=== PATIENT | female | born 1955 | race Caucasian/White ===

== ENCOUNTER 2017-12-23 03:44 | Emergency (ER) | payer OTHER ==
[2017-12-23] MEDS ORDERED: HYDROcodone/APAP 5-325MG 1 EACH TAB PO STA ×2 (03:59→06:07)
[2017-12-23] MEDS ORDERED: DIAZEPAM 5 MG TAB PO STA (03:59)
--- NOTE | 2017-12-23 04:01 | ED ---
General Adult HPI - General Chief complaint: Fall Stated complaint: Foot injury Time Seen by Provider: 12/23/17 03:48 Source: patient, family, RN notes reviewed, old records reviewed Mode of arrival: wheelchair Limitations: no limitations - History of Present Illness Initial comments: This is a 8-year-old female the ER for evaluation of severe right ankle pain. Trip and fall over plan is at home. Patient complains of severe right ankle pain. No other injury no loss of consciousness. Patient denies drugs or alcohol - Related Data Previous Rx's Medication Instructions Recorded HYDROcodone/APAP 5-325MG [[place] 1 tab PO Q6HR PRN #10 tab 12/23/17 5-325] Allergies Allergy/AdvReac Type Severity Reaction Status Date / Time No Known Allergies Allergy Verified 12/23/17 03:53 Review of Systems ROS Statement: Those systems with pertinent positive or pertinent negative responses have been documented in the HPI. ROS Other: All systems not noted in ROS Statement are negative. Past Medical History Past Medical History: Hypertension Additional Past Medical History / Comment(s): Back pain. History of Any Multi-Drug Resistant Organisms: None Reported Past Surgical History: Joint Replacement, Orthopedic Surgery Past Psychological History: No Psychological Hx Reported Smoking Status: Current every day smoker Past Alcohol Use History: Occasional Past Drug Use History: Marijuana General Exam - General Exam Comments Initial Comments: significant deformity right ankle Limitations: no limitations General appearance: alert, in no apparent distress Head exam: Present: atraumatic, normocephalic, normal inspection Eye exam: Present: normal appearance, PERRL, EOMI. Absent: scleral icterus, conjunctival injection, periorbital swelling ENT exam: Present: normal exam, mucous membranes moist Neck exam: Present: normal inspection. Absent: tenderness, meningismus, lymphadenopathy Respiratory exam: Present: normal lung sounds bilaterally. Absent: respiratory distress, wheezes, rales, rhonchi, stridor Cardiovascular Exam: Present: regular rate, normal rhythm, normal heart sounds. Absent: systolic murmur, diastolic murmur, rubs, gallop, clicks GI/Abdominal exam: Present: soft, normal bowel sounds. Absent: distended, tenderness, guarding, rebound, rigid Extremities exam: Present: normal inspection, full ROM, normal capillary refill. Absent: tenderness, pedal edema, joint swelling, calf tenderness Back exam: Present: normal inspection Neurological exam: Present: alert, oriented X3, CN II-XII intact Psychiatric exam: Present: normal affect, normal mood Skin exam: Present: warm, dry, intact, normal color. Absent: rash Course Vital Signs 12/23/17 03:50 Temperature 98.7 F Pulse Rate 95 Respiratory 18 Rate Blood Pressure 139/79 O2 Sat by Pulse 97 Oximetry - Reevaluation(s) Reevaluation #1: 12/23/17 06:[address] Singletary for orthopedics, patient will follow-up at the end of the weekend Reevaluation #2: 12/23/17 06:25 Patient stressed nonweightbearing, agreeable Procedures - Orthopedic Fracture Reduction Fracture #1 Consent Obtained: verbal consent Time Out Performed: Yes Side: right Fracture Reduction Location: tibia, fibula Technique: direct manipulation, traction/counter-traction Post Reduction X-rays Demonstrate: anatomical reduction Post-Reduction Neuro Exam: intact Post-Reduction Vascular Exam: intact Splint Applied: Yes Patient Tolerated Procedure: well Medical Decision Making - Medical Decision Making 62 female the ER with fall resulting in right ankle trimalleolar fracture, ankle is splinted, patient will follow-up with orthopedics - Radiology Data Radiology results: report reviewed (X-ray right lower extremity show significant tremor now fracture right ankle,), image reviewed Disposition Clinical Impression: Closed right trimalleolar fracture, Fall Disposition: HOME SELF-CARE Condition: Good Instructions: Ankle Fracture (ED) Prescriptions: HYDROcodone/APAP 5-325MG [[place] 5-325] 1 tab PO Q6HR PRN #10 tab PRN Reason: Pain Is patient prescribed a controlled substance at d/c from ED?: No Referrals: Elieser Mari MD [Primary Care Provider] - 1-2 days
[2017-12-23 04:08] VITALS: TEMP 98.7
--- NOTE | 2017-12-23 04:35 | XR ---
EXAMINATION TYPE: XR ankle complete RT DATE OF EXAM: 12/23/2017 COMPARISON: NONE HISTORY: Ankle pain TECHNIQUE: 3 views FINDINGS: There is trimalleolar fracture of the right ankle. There is 1 cm lateral displacement of th e talus on frontal view. Distal fibula fracture is displaced 5 mm. There is 1 cm displacement of the medial malleolus fracture. There is a 3 x 1.5 cm large chip fracture of the posterior malleolus. Ther e is posterior dislocation of the talus on the lateral view. There is calcaneal spurring. IMPRESSION: Trimalleolar posterior fracture dislocation of the ankle joint.
[2017-12-23] MEDS ORDERED: ACET/COD 300 MG/30 MG STARTER PACK 6 TAB BTL PO STA (06:08)
[2017-12-23 06:31] VITALS: BP 122/73; PULSE 77; RESP 16
--- NOTE | 2017-12-23 06:42 | XR ---
EXAMINATION TYPE: XR ankle limited RT DATE OF EXAM: 12/23/2017 COMPARISON: Today HISTORY: Post reduction TECHNIQUE: 2 views FINDINGS: There is trimalleolar posterior fracture dislocation of the ankle. Talus is displaced poste riorly 1.5 cm. There is slightly improved position of the fragments compared to initial exam. IMPRESSION: Persistent posterior dislocation of the talus. Slight improved position.
== END 2017-12-23 07:09 | disposition home or self-care (01) ==
LOC: EC 03:44
DX: S82.851A Displaced trimalleolar fracture of right lower leg, initial encounter for closed fracture (principal); F17.200 Nicotine dependence, unspecified, uncomplicated; Z98.890 Other specified postprocedural states; W01.0XXA Fall on same level from slipping, tripping and stumbling without subsequent striking against object, initial encounter; Y92.009 Unspecified place in unspecified non-institutional (private) residence as the place of occurrence of the external cause
CPT/HCPCS: 27818; 99284

== ENCOUNTER 2021-01-21 14:25 | Emergency (ER) | payer MEDICARE, OTHER ==
[2021-01-21 14:30] VITALS: BP 146/80; PULSE 100; RESP 16; TEMP 97.5
[2021-01-21] MEDS ORDERED: IBUPROFEN 600 MG TAB PO STA (14:37)
--- NOTE | 2021-01-21 14:39 | ED ---
Upper Extremity HPI - General Chief Complaint: Extremity Injury, Upper Stated Complaint: L wrist injury Time Seen by Provider: 01/21/21 14:30 Source: patient Mode of arrival: ambulatory Limitations: no limitations - History of Present Illness Initial Comments: 65-year-old female presents to emergency department with a chief complaint of left wrist pain. States the incident occurred yesterday when she slipped on a boat ramp and suffered a FOOSH. States mostly the pain is located along the medial aspect of the left wrist as well as the posterior. Reports some swelling but denies any ecchymosis or erythema. States she has limited range of motion of flexion and extension of the left wrist due to pain. Denies any scaphoid tenderness. Denies any weakness or associated paresthesias. - Related Data Previous Rx's Medication Instructions Recorded HYDROcodone/APAP 5-325MG [[place] 1 tab PO Q6HR PRN #10 tab 12/23/17 5-325] Allergies Allergy/AdvReac Type Severity Reaction Status Date / Time No Known Allergies Allergy Verified 01/21/21 14:27 Review of Systems ROS Statement: Those systems with pertinent positive or pertinent negative responses have been documented in the HPI. ROS Other: All systems not noted in ROS Statement are negative. Past Medical History Past Medical History: Hypertension Additional Past Medical History / Comment(s): Back pain. History of Any Multi-Drug Resistant Organisms: None Reported Past Surgical History: Joint Replacement, Orthopedic Surgery Past Psychological History: No Psychological Hx Reported Smoking Status: Current every day smoker Past Alcohol Use History: Daily Past Drug Use History: Marijuana General Exam Limitations: no limitations General appearance: alert, in no apparent distress Head exam: Present: atraumatic, normocephalic, normal inspection Eye exam: Present: normal appearance, PERRL, EOMI Pupils: Present: normal accommodation ENT exam: Present: normal exam, normal oropharynx, mucous membranes moist Neck exam: Present: normal inspection, full ROM. Absent: tenderness, lymphadenopathy Respiratory exam: Present: normal lung sounds bilaterally. Absent: respiratory distress Cardiovascular Exam: Present: regular rate, normal rhythm, normal heart sounds. Absent: systolic murmur Extremities exam: Present: tenderness (Medial and posterior swelling), normal capillary refill, other (Palpable ulnar and radial pulses bilaterally). Absent: normal inspection (Mild swelling noted in the left wrist), full ROM (Motor range of motion of flexion and extension of the wrist), pedal edema, joint swelling, calf tenderness Back exam: Present: normal inspection, full ROM. Absent: tenderness Neurological exam: Present: alert, oriented X3 Psychiatric exam: Present: normal affect, normal mood Skin exam: Present: warm, dry, intact, normal color Course Vital Signs 01/21/21 14:28 Temperature 97.5 F L Pulse Rate 100 Respiratory 16 Rate Blood Pressure 146/80 O2 Sat by Pulse 97 Oximetry Medical Decision Making - Medical Decision Making 65-year-old female presents to emergency department with a chief complaint of left wrist pain. Physical examination, she is neurovascularly intact. No scaphoid tenderness. X-rays are unremarkable. Patient likely suffered an upper respiratory. Sam wrap applied. Advised to follow-up with orthopedic sp ecialist. Return parameters were thoroughly discussed the patient is an attending agreeable. Case discussed with physician. Disposition Clinical Impression: Left wrist sprain Disposition: HOME SELF-CARE Condition: Stable Instructions (If sedation given, give patient instructions): Wrist Sprain (ED) Additional Instructions: Follow-up with geospatial specialist. Return to emergency department if symptoms worsen. Is patient prescribed a controlled substance at d/c from ED?: No Referrals: Elieser Mari MD [Primary Care Provider] - 1-2 days Dylon Moody MD [STAFF PHYSICIAN] - 1-2 days Time of Disposition: 15:35
--- NOTE | 2021-01-21 15:15 | XR ---
EXAMINATION TYPE: XR wrist complete LT DATE OF EXAM: 01/21/2021 CLINICAL HISTORY: Pain after falling injury. TECHNIQUE: Frontal, lateral and oblique images of the left wrist are obtained. 4 view scaphoid view is performed. COMPARISON: None FINDINGS: Osseous structures somewhat demineralized which is noted to lower radiographic sensitivity . There is no acute fracture/dislocation evident in the left wrist. Mild to moderate narrowing and mi ld spurring base of first metacarpal and triscaphe joint. The overlying soft tissue appears unremark able. IMPRESSION: There is no acute fracture or dislocation in the left wrist.
== END 2021-01-21 15:45 | disposition home or self-care (01) ==
LOC: EC 14:25
DX: S63.502A Unspecified sprain of left wrist, initial encounter (principal); I10 Essential (primary) hypertension; F17.200 Nicotine dependence, unspecified, uncomplicated; F12.90 Cannabis use, unspecified, uncomplicated; W17.89XA Other fall from one level to another, initial encounter
CPT/HCPCS: 99283